=== PATIENT | male | born 1945 | race Caucasian/White ===

== ENCOUNTER 2017-11-18 08:22 | Outpatient (CLI) | payer MEDICARE ==
[~2017-11-18] VITALS: Ht 180.3 cm; Wt 84.1 kg
[2017-11-18] MEDS ORDERED: ZESTORETIC 10/11 TAB PO (09:01)
[2017-11-18 09:11] VITALS: Ht 180.3 cm; Wt 84.1 kg
[2017-11-18 09:26] LABS: ANION GAP 13.6 mmol/L (8-16); BASOPHILS 0.3 % (0-2); CARBON DIOXIDE 26.3 mmol/L (21.0-32.0); CREATININE - SERUM 1.1 mg/dL (0.6-1.3); EOSINOPHILS 0.8 % (0-7); HEMATOCRIT 42.5 % (42.0-54.0); HEMOGLOBIN 14.6 g/dL (13.5-17.5); IMMATURE GRANULOCYTES 0.2 % (0-5); LYMPHOCYTES 29.8 % (15-50); MCHC 34.4 g/dL (31.0-37.0); MCV 96.2 fL (80.0-100.0); MEAN PLATELET VOLUME 9.8 fL (7.4-10.4); MONOCYTES 8.9 % (2-11); PLATELET COUNT 292 10x3/uL (130-400); POTASSIUM - SERUM 3.9 mmol/L (3.5-5.1); RBC 4.42 10x6/uL (4.20-6.10); RDW 13.1 % (11.5-14.5); WBC 6.1 10x3/uL (4.8-10.8)
[2017-11-18 09:30] LABS: INR 1.03 (0.85-1.17); PROTIME 13.1 SECONDS (11.6-15.0)
[2017-11-18 09:31] LABS: APTT 27.4 SECONDS (22.8-39.4)
== END 2017-11-18 12:15 | disposition home or self-care (01) ==
LOC: D.OPS 08:22 → D.RAD 11:00 → D.OPS 12:15
PROVIDERS: Radiology Diagnostic Radiology
DX: C07 Malignant neoplasm of parotid gland (principal); Z01.812 Encounter for preprocedural laboratory examination